=== PATIENT | female | born 1980 | race Hispanic/Latino ===

== ENCOUNTER 2017-05-14 00:51 | Emergency (ER) | payer MEDICAID, OTHER ==
[2017-05-14] MEDS ORDERED: DiphenhydrAMINE HCL 50 MG/ML VIAL ONE (01:42)
[2017-05-14] MEDS ORDERED: LORAZEPAM 2 MG/ML 1 ML VIAL ONE (01:43)
[2017-05-14 02:22] LABS: AMPHET/METH SCREEN,URINE NEGATIVE (NEGATIVE); BARBITURATE SCREEN, URINE NEGATIVE (NEGATIVE); BENZODIAZEPINES SCREEN,URINE NEGATIVE (NEGATIVE); CANNABINOID SCREEN,URINE POSITIVE (NEGATIVE); COCAINE SCREEN,URINE NEGATIVE (NEGATIVE); OPIATE SCREEN,URINE POSITIVE (NEGATIVE); PHENCYCLIDINE SCREEN,URINE NEGATIVE (NEGATIVE)
[2017-05-14 05:29] LABS: T4 (THYROXINE) 10.2 mcg/dL (4.7-13.3); THYROID STIMULATING HORMONE 0.71 uIU/mL (0.36-3.74)
== END 2017-05-14 05:57 | disposition home or self-care (01) ==
LOC: EDH 00:51
DX: F41.1 Generalized anxiety disorder (principal); Z88.0 Allergy status to penicillin; Z87.891 Personal history of nicotine dependence
CPT/HCPCS: 36415; 80305; 84436; 84443; 93005; 96374; 96375; 99285; J1200; J2060

== ENCOUNTER 2018-02-22 20:01 | Emergency (ER) | payer MEDICAID ==
[~2018-02-22 20:01] MED LIST: FLUO20CA30 PO; PREN-154 PO
[2018-02-22] MEDS ORDERED: LIDOCAINE HCL MPF 1% 5ML VIAL ONE (20:31)
[2018-02-22] MEDS ORDERED: TETANUS/DIPHTHERIA TOXOID [ADULT] 0.5 ML VIAL IM ONE (20:31)
== END 2018-02-22 21:40 | disposition home or self-care (01) ==
LOC: EDH 20:01
DX: S61.217A Laceration without foreign body of left little finger without damage to nail, initial encounter (principal); Z88.0 Allergy status to penicillin; Z98.890 Other specified postprocedural states; W26.0XXA Contact with knife, initial encounter; Y93.G3 Activity, cooking and baking; Y92.098 Other place in other non-institutional residence as the place of occurrence of the external cause; Y99.8 Other external cause status
CPT/HCPCS: 12001; 73140; 90471; 90714; 99284; J3490

== ENCOUNTER 2018-03-09 21:50 | Emergency (ER) | payer MEDICAID | END 2018-03-09 22:19 | disposition home or self-care (01) | LOC: EDH 21:50 | DX: S61.217D Laceration without foreign body of left little finger without damage to nail, subsequent encounter (principal); F41.9 Anxiety disorder, unspecified; F32.9 Major depressive disorder, single episode, unspecified; Z88.0 Allergy status to penicillin; Z98.890 Other specified postprocedural states; X58.XXXD Exposure to other specified factors, subsequent encounter | CPT/HCPCS: 99281 ==

== ENCOUNTER 2018-10-07 12:44 | Emergency (ER) | payer MEDICAID, OTHER ==
[2018-10-07] MEDS ORDERED: IBUPROFEN 600 MG TABLET ONE (13:35)
== END 2018-10-07 13:42 | disposition home or self-care (01) ==
LOC: EDH 12:44
DX: S93.432A Sprain of tibiofibular ligament of left ankle, initial encounter (principal); F41.9 Anxiety disorder, unspecified; F32.9 Major depressive disorder, single episode, unspecified; Z72.0 Tobacco use; Z88.0 Allergy status to penicillin; X50.1XXA Overexertion from prolonged static or awkward postures, initial encounter; Y93.89 Activity, other specified; Y92.89 Other specified places as the place of occurrence of the external cause; Y99.8 Other external cause status
CPT/HCPCS: 73610